=== PATIENT | female | born 1950 | race Caucasian/White ===

== ENCOUNTER 2017-06-07 22:11 | Inpatient (IN) | payer MEDICARE, OTHER ==
[~2017-06-07] VITALS: Ht 152.4 cm; Wt 42.6 kg
--- NOTE | 2017-06-07 22:15 | NUR ---
PT BIB EMS, PT EMS PT HAD AN EPISODE OF CONFUSION/ UNABLE TO SPEAK THAT RESOLVED REMELT WORKER OF EMS. PT AOX3 RR EVEN AND UNLABORED. NO SOB NOTED. NAD NOTED. NO NVD AT THIS TIME. PT NOT DIAPHORETIC. PT GOWNED AND PLACED ON MONITOR WAITING FOR MD GOMEZ.
--- NOTE | 2017-06-07 22:21 | NUR ---
CALLED HOUSE SUP FOR TELE BED
[2017-06-07 22:37] LABS: BASOPHILS % (AUTO) 0.6 % (0.0-2.0); EOSINOPHILS # (AUTO) 0.2 /CMM (0.0-0.7); EOSINOPHILS % (AUTO) 2.8 % (0.0-6.0); HEMATOCRIT 25 % (33-45); HEMOGLOBIN 8.3 g/dL (11.5-14.8); LYMPHOCYTES # (AUTO) 0.8 /CMM (0.8-4.8); LYMPHOCYTES % (AUTO) 14.7 % (20.0-44.0); MEAN CORPUSCULAR HEMOGLOBIN 26 PG (26.0-33.0); MEAN CORPUSCULAR HGB CONC 33 g/dl (31.0-36.0); MEAN CORPUSCULAR VOLUME 79 fL (82-100); MONOCYTES # (AUTO) 0.5 /CMM (0.1-1.30); MONOCYTES % (AUTO) 9.1 % (2.0-12.0); NEUTROPHILS # (AUTO) 4.2 /CMM (1.8-8.9); NEUTROPHILS % (AUTO) 72.8 % (43.0-81.0); PLATELET COUNT (AUTO) 252 /CMM (150-450); RDW COEFFICIENT OF VARIATION 14.7 (11.5-15.0); RED BLOOD CELL COUNT(AUTO) 3.18 MIL/uL (4.0-5.2); WHITE BLOOD COUNT (AUTO) 5.7 K/uL (4.3-11.0)
--- NOTE | 2017-06-07 22:38 | NUR ---
ASSIGNED BED 102
--- NOTE | 2017-06-07 22:38 | NUR ---
PT TO CT.
[2017-06-07 22:48] LABS: CALCIUM, SERUM 8.7 mg/dL (8.5-10.1); CARBON DIOXIDE 30 mmol/L (21-32); CHLORIDE 102 mmol/L (98-107); CREATININE 0.8 mg/dL (0.6-1.3); GLUCOSE 96 mg/dL (74-106); POTASSIUM 5.3 mmol/L (3.5-5.1); SODIUM SERUM 136 mmol/L (136-145); UREA NITROGEN, BLOOD 20 mg/dL (7-18)
--- NOTE | 2017-06-07 22:50 | NUR ---
PT RETURNED FROM CT VIA [facility]
[2017-06-07 22:51] LABS: INR 0.91 (0.87-1.13); PROTHROMBIN TIME 9.7 SECS (9.5-12.7)
--- NOTE | 2017-06-07 22:55 | NUR ---
URINE COLLECTED. CALLED LAB FOR MINE ENGINEERING MANAGER.
[2017-06-07 22:57] LABS: TROPONIN I < 0.017 ng/mL (0.00-0.056)
--- NOTE | 2017-06-07 23:22 | NUR ---
DR. GONZALEZ AT BEDSIDE FOR EVAL.
--- NOTE | 2017-06-07 23:33 | NUR ---
Patient does not wish to proceed with medical care recommended by Dr. Valdez. Patient given information related to possible complications, up to and including , which could occur as a result of leaving the hospital at this time. Patient verbalizes understanding of risks involved due to leaving against medical advice. Patient has signed AMA form.
--- NOTE | 2017-06-07 23:35 | NUR ---
FAMILY AT BEDSIDE.
--- NOTE | 2017-06-08 00:20 | NUR ---
DR. SPICER AT BEDSIDE SPEAKING TO FAMILY REGARDING POC.
--- NOTE | 2017-06-08 00:25 | NUR ---
PT DECIDED TO BE ADMITTED.
[2017-06-08] MEDS ORDERED: TIZA2TAB4 PO (00:59)
[2017-06-08] MEDS ORDERED: OXYC-128 PO (00:59)
[2017-06-08] MEDS ORDERED: OMEP20TA20 PO (00:59)
[2017-06-08] MEDS ORDERED: LAMO100T2 PO (00:59)
[2017-06-08] MEDS ORDERED: METH20CP PO (00:59)
[2017-06-08] MEDS ORDERED: OXYC-34 PO (00:59)
[2017-06-08] MEDS ORDERED: AMPH20CA3 PO (00:59)
[2017-06-08] MEDS ORDERED: PROP10TA10 PO (00:59)
[2017-06-08] MEDS ORDERED: DICL100G3 TP (00:59)
[2017-06-08] MEDS ORDERED: PSEU120T57 PO (00:59)
[2017-06-08] MEDS ORDERED: BACL10TA PO (00:59)
[2017-06-08] MEDS ORDERED: TRAZ-144 PO (00:59)
[2017-06-08] MEDS ORDERED: QUET25TA PO (00:59)
[2017-06-08] MEDS ORDERED: AMPH20CA11 PO (00:59)
[2017-06-08] MEDS ORDERED: TEMA30CA PO (00:59)
[2017-06-08] MEDS ORDERED: FLUO20CA36 PO (00:59)
[2017-06-08] MEDS ORDERED: BUPR150T10 PO (00:59)
[2017-06-08] MEDS ORDERED: RALO60TA PO (00:59)
[2017-06-08] MEDS ORDERED: SENN8.6T6 PO (00:59)
[2017-06-08] MEDS ORDERED: GUAI600T PO (00:59)
[2017-06-08] MEDS ORDERED: ALPR0.255 PO (00:59)
[2017-06-08] MEDS ORDERED: ASPIRIN 81 MG TAB.CHEW ONE (01:06)
--- NOTE | 2017-06-08 01:07 | NUR ---
VERBAL ORDERS PER DR. SPICER TO GIVE PT ASA [phone] PO NOW. PT MEDICATED.
--- NOTE | 2017-06-08 01:23 | NUR ---
REPORT GIVEN NERISSA SUTTON FOR TELE BED 102
[2017-06-08] MEDS ORDERED: ASPIRIN 325 MG TABLET PO ONE (01:30)
[2017-06-08 01:35] VITALS: BP 117/70
--- NOTE | 2017-06-08 01:43 | NUR ---
PT TRANSFERED PER ACLS PROTOCOL.
--- NOTE | 2017-06-08 01:45 | NUR ---
JACQUELYN-1/FEDERAL APPELLATE LAW CLERK RECEIVED PT IN ROOM 102 VIA [facility] ACCOMPANIED BY ER STAFF. PT WAS ABLE TO TRANSFER HERSELF FROM [place] TO BED WITH WITH MINIMAL ASSISTANCE. PT WAS GOWNED, PLACED ON MONITOR, AND AMBULATED TO THE TOILET WITH A WALKER AND SANIYA RN. PAST MEDICAL HISTORY WAS GATHERED FROM PTS DAVID. PHYSICAL ASSESSMENT DATA WAS GATHERED AND SKIN ASSESSMENT WAS COMPLETED. PT HAD LEFT HIP REPLACEMENT ON 06/03/17 AND DID NOT WANT SX DRESSING REMOVED. NIHSS WAS COMPLETED WITH RESULTS GIVEN TO DR. GONZALEZ. NURSE QING GOMEZ WAS COMPLETED, PT SHOWED NO DEFICITS. PT HAS LIMITED RANGE OF MOTION ON HER LEFT LEG DUE TO HER RECENT SURGERY. PT DENIES ANY TINGLING NUMBNESS OR LOSS OF SENSATION ON THIS EXTREMITY. PT AND PT WAS GIVEN INFORMATION ON SIGNS AND SYMPTOMS OF STOKE WELL RISK FACTORS. PT AND PT GAVE VERBAL UNDERSTANDING.
[2017-06-08 02:21] VITALS: BP 117/70
[2017-06-08] MEDS ORDERED: ENOXAPARIN SODIUM 40 MG/0.4 ML DISP.SYRIN SQ SCH ×2 (02:30→21:00)
[2017-06-08] MEDS ORDERED: ACETAMINOPHEN 325 MG TABLET PO PRN (02:30)
[2017-06-08 02:36] LABS: BASOPHILS % (AUTO) 0.4 % (0.0-2.0); EOSINOPHILS # (AUTO) 0.2 /CMM (0.0-0.7); HEMATOCRIT 26 % (33-45); HEMOGLOBIN 8.4 g/dL (11.5-14.8); LYMPHOCYTES # (AUTO) 1.4 /CMM (0.8-4.8); LYMPHOCYTES % (AUTO) 26.2 % (20.0-44.0); MEAN CORPUSCULAR HEMOGLOBIN 26 PG (26.0-33.0); MEAN CORPUSCULAR HGB CONC 33 g/dl (31.0-36.0); MEAN CORPUSCULAR VOLUME 79 fL (82-100); MONOCYTES # (AUTO) 0.5 /CMM (0.1-1.30); MONOCYTES % (AUTO) 9.3 % (2.0-12.0); NEUTROPHILS # (AUTO) 3.2 /CMM (1.8-8.9); NEUTROPHILS % (AUTO) 61.1 % (43.0-81.0); PLATELET COUNT (AUTO) 251 /CMM (150-450); RDW COEFFICIENT OF VARIATION 14.9 (11.5-15.0); RED BLOOD CELL COUNT(AUTO) 3.23 MIL/uL (4.0-5.2); WHITE BLOOD COUNT (AUTO) 5.3 K/uL (4.3-11.0)
[2017-06-08] MEDS ORDERED: ENOXAPARIN SODIUM 40 MG/0.4 ML DISP.SYRIN SQ ONE (02:41)
[2017-06-08 02:45] LABS: CALCIUM, SERUM 8.5 mg/dL (8.5-10.1); CREATININE 0.7 mg/dL (0.6-1.3); POTASSIUM 4.6 mmol/L (3.5-5.1)
[2017-06-08 02:57] LABS: ALBUMIN 2.5 g/dL (3.4-5.0); BILIRUBIN,TOTAL 0.6 mg/dL (0.2-1.0); TOTAL PROTEIN, SERUM 6.8 g/dL (6.4-8.2)
[2017-06-08 02:58] LABS: THYROID STIMULATING HORMONE 1.375 uIU/mL (0.358-3.74)
[2017-06-08] MEDS ORDERED: TEMAZEPAM 15 MG CAPSULE PO ONE (03:00)
--- NOTE | 2017-06-08 03:00 | NUR ---
TELE-1/FARM MANAGEMENT TEACHER PT IS VERY CONCERNED ABOUT HER NORMAL SLEEPING MEDICATION ROUTINE. DR. GONZALEZ WAS PAGED AND AN ORDER WAS RECEIVED TO GIVE A ONE TIME DOSE OF TEMAZEPAM 30MG, WHICH IS THE PTS HOME DOSE. ALSO ENOXAPARIN WAS ADMINISTERED. PT DOES NOT WANT SCD'S AT THIS TIME BECAUSE OF HER STATED SLEEP PROBLEMS. BED IN LOW LOCKED POSITION, SIDE RAILS UP, BED ALARM ON. WILL CONTINUE TO MONITOR.
[2017-06-08] MEDS ORDERED: TEMAZEPAM 15 MG CAPSULE ONE (03:01)
[2017-06-08 04:00] VITALS: BP 90/50
--- NOTE | 2017-06-08 04:24 | NUR ---
TELE-1/CARDIOPULMONARY SUPERVISOR PT IS EASILY AROUSABLE. STATES SHE IS FINE AND IS DECLINING TO PARTICIPATE IN NEURO ASSESSMENT. WILL CONTINUE TO MONITOR.
[2017-06-08] MEDS ORDERED: BLOOD SUGAR DIAGNOSTIC 1 EACH STRIP IN SCH (06:00)
[2017-06-08] MEDS ORDERED: oxyCODONE/APAP (5/325 MG) 1 UDTAB TABLET PO PRN ×2 (07:30)
--- NOTE | 2017-06-08 07:45 | NUR ---
RN NOTES RECEIVED PT RESTING IN BED, WATCHING TV. AWAKE ALERT ORIENTED X4, ABLE TO COMMUNICATE NEEDS. NO FACIAL DROOP NOTED, NO SLURRED SPEECH. ON RA ALEK WELL, NO ACUTE DISTRESS/ DISCOMFORT NOTED. PT SR ON TELE MONITOR HR 83BPM AT THIS TIME. PT DENIES ANY WEAKNESS, ADVISED PT TO CALL FOR NURSE WHEN ASSISTANCE IS NEEDED, BED ALARM ON. WALKER AT BEDSIDE. NOTED WITH LIMITED MOVEMENT ON LLE DT S/P TOTAL HIP REPLACEMENT, PT REFUSED FOR DRESSING TO BE CHANGED PER NOC NURSE REPORT, PT PREFERS MD TO DO THE DRESSING CHANGE. EDUCATED PT WITH USE OF CALL LIGHT FOR ASSISTANCE, PT VERBALIZED UNDERSTANDING. R AC SALINE LOCK, FLUSHED WITH NS TO CHECK FOR PATENCY. ALL NEEDS ATTENDED, CALL LIGHT WITHIN REACH, WILL CONT TO MONITOR.
[2017-06-08 08:00] VITALS: BP 102/60
--- NOTE | 2017-06-08 08:47 | NUR ---
RN NOTES BED ALARM GOING OFF, PT NOTED GET OOB WITHOUT ASSISTANCE, REMINDED PT TO ASK FOR HELP AND USE THE CALL LIGHT TO CALL FOR ASSISTANCE.
[2017-06-08] MEDS ORDERED: RALOXIFENE 60 MG TABLET PO SCH (09:00)
[2017-06-08] MEDS ORDERED: buPROPion SR 150 MG TABLET.ER PO SCH (09:00)
[2017-06-08] MEDS ORDERED: PROPRANOLOL HCL 10 MG TABLET PO SCH (09:00)
[2017-06-08] MEDS ORDERED: SENNOSIDES 8.6 MG TABLET PO SCH (09:00)
[2017-06-08] MEDS ORDERED: ASPIRIN EC 325 MG TABLET.DR PO SCH (09:00)
[2017-06-08] MEDS ORDERED: DOCUSATE SODIUM 100 MG CAPSULE PO SCH (09:00)
[2017-06-08] MEDS ORDERED: oxyCODONE/APAP (5/325 MG) 1 UDTAB TABLET PO SCH (09:00)
[2017-06-08] MEDS ORDERED: FLUOXETINE HCL 20 MG CAPSULE PO SCH (09:00)
[2017-06-08] MEDS ORDERED: LamoTRIgine 100 MG TABLET PO SCH (09:00)
[2017-06-08] MEDS: ALPRAZOLAM 0.25 MG TABLET PO SCH ×2 (09:10→13:10)
[2017-06-08] MEDS: BLOOD SUGAR DIAGNOSTIC 1 EACH STRIP IN SCH ×2 (09:10→13:10)
[2017-06-08 12:00] VITALS: BP 88/48
--- NOTE | 2017-06-08 14:00 | NUR ---
RN NOTES DR IVAN AT BEDSIDE, PLAN OF CARE DISCUSSED WITH PT, ALL QUESTIONS AND CONCERNS ANSWERED BY MD. FAMILY MEMBERS AT BEDSIDE.
--- NOTE | 2017-06-08 14:27 | NUR ---
RN NOTES RN NOTES PT WAS SEEN BY PHYSICAL THERAPIST FOR EVALUATION. PHYSICAL THERAPIST AMBULATED WITH PT, PT ABLE TO AMBULATED WITH WALKER
--- NOTE | 2017-06-08 15:15 | NUR ---
RN NOTES PT DISCHARGED FROM UNIT IN STABLE CONDITION. ALL DISCHARGE PAPERWORK SENT WITH THE PT, EXITCARE PROVIDED. DISCHARGE INSTRUCTIONS GIVEN, PT VERBALIZED UNDERSTANDING. NO PRESCRIPTIONS ORDERED BY MD. PAPERWORK SIGNED BY PT, ALL BELONGINGS RETURNED. REMINDED PT TTO FOLLOW UP WITH PRIMARY CARE PHYSICIAN IN 1-2 WEEKS. VS WITHIN NORMAL LIMITS, NO WEKANESS NOTED, NO DIFFICULTY SPEAKING NOTED. PT ACCOMPANIED TO LOBBY VIA WHEELCHAIR WITH NURSE CIRCULATION CLERK AND AND 2 OTHER FAMILY MEMBERS. IV SITE ON R ARM REMOVED, PRESSURE APPLIED COVERED WITH CLEAN DRY DRESSING. ID BAND REMOVED.
[2017-06-08] MEDS ORDERED: TRAZODONE 50 MG TABLET PO SCH (18:00)
[2017-06-08] MEDS ORDERED: QUETIAPINE FUMARATE 25 MG TABLET PO SCH (18:00)
[2017-06-08] MEDS ORDERED: TEMAZEPAM 15 MG CAPSULE PO SCH (22:00)
== END 2017-06-08 15:15 | disposition home or self-care (01) | DRG 917 ==
LOC: ER 22:12 → TELE1 06-08 00:56
PROVIDERS: ADMIT Internal Medicine; ATTEND Internal Medicine
DX: T40.2X1A Poisoning by other opioids, accidental (unintentional), initial encounter (principal); G92 Toxic encephalopathy; D62 Acute posthemorrhagic anemia; G89.4 Chronic pain syndrome; F31.9 Bipolar disorder, unspecified; M48.06 Spinal stenosis, lumbar region; Z96.642 Presence of left artificial hip joint; Z88.0 Allergy status to penicillin; M19.90 Unspecified osteoarthritis, unspecified site; Y92.89 Other specified places as the place of occurrence of the external cause
CPT/HCPCS: 36415; 70450-TC; 71010-TC; 80048-TC; 80053-TC; 80061-TC; 80305; 82962-TC; 83880; 84443-TC; 84484-TC; 85025-TC; 85652-TC; 85730-TC; 87081-TC; A4606; J1650; Z7610

== ENCOUNTER 2017-07-04 14:59 | Inpatient (IN) | payer MEDICARE, OTHER ==
[~2017-07-04] VITALS: Ht 149.9 cm; Wt 45.0 kg
[~2017-07-04 14:59] MED LIST: ALPR0.255 PO; AMPH20CA11 PO; AMPH20CA3 PO; BACL10TA PO; BUPR150T10 PO; DICL100G3 TP; FLUO20CA36 PO; GUAI600T PO; LAMO100T2 PO; METH20CP PO; OMEP20TA20 PO; OXYC-128 PO; PROP10TA10 PO; PSEU120T57 PO; QUET25TA PO; RALO60TA PO; SENN8.6T6 PO; TEMA30CA PO; TIZA2TAB4 PO; TRAZ-144 PO
--- NOTE | 2017-07-04 15:10 | NUR ---
PATIENT BIB RA D/T GLF AT HOME. PATIENT IS A/OX 3, BREATHING EVEN AND UNLABORED. NO SOB. PATIENT ADMITS TO USING PAIN KILLERS FOR RECENT HIP SURGERY. PATIENT'S VITALS STABLE, EXCEPT BP RUNNING LOW, WHICH IS NORMAL PER PATIENT. PATIENTS NEEDS ATTENDED TO, SAFETY AND COMFORT MEASURES IN PLACE. AWAITING MD ORDERS.
[2017-07-04] MEDS ORDERED: TEMA15CA PO (16:02)
[2017-07-04] MEDS ORDERED: SULF1TAB48 PO (16:02)
[2017-07-04] MEDS ORDERED: DEXT10TA7 PO (16:02)
[2017-07-04] MEDS ORDERED: ONDA4TAB5 PO (16:02)
--- NOTE | 2017-07-04 16:35 | NUR ---
PAGED DR HALL PATIENT'S ORTHOPEDIC SURGEON
--- NOTE | 2017-07-04 17:04 | NUR ---
PAGED DR LEWIS FOR ORTHO CONSULT
--- NOTE | 2017-07-04 18:30 | NUR ---
PATIENT TRANSPORTED TO ROOM 311-2 FOR ADMISSION. REPORT GIVEN TO KATYA YANCEY FOR LASHA.
--- NOTE | 2017-07-04 18:51 | NUR ---
MS/RN NOTES PATIENT ADMITTED TO UNIT VIA GURNEY ACCOMPANIED BY ER NURSE AND . ALERT AND ORIENTED X 3, NO COMPLAINT VOICED AT THIS TIME. V/S TAKEN. ORIENTED TO UNIT. ENDORSED TO MEDIA SENIOR RECRUITER NURSE TO CONTINUE WITH ASSESSMENT AND ADMISSION.
[2017-07-04 19:20] VITALS: BP 95/53
--- NOTE | 2017-07-04 19:20 | NUR ---
MS RN NOTES RECEIVED PT IN BED, AWAKE, A/OX 3. VERBALLY RESPONSIVE. NO DISTRESS NO SOB NOTED. RESPIRATION IS EVEN AND UNLABORED.IV SITE ON LFA INTACT AND PATENT, NO S/S OF INFILTRATION NOTED. PT C/O LEFT HIP PAIN / OFFERED PAIN MEDICATION, PT DOESN'T WANT IT AT THIS TIME.SKIN IS INTACT. LEFT HIP SURGICAL SITE WITH INTACT AND CLEAN DRESSING. NO BLEEDING AT THIS TIME. PLAN OF CARE DISCUSSED WITH THE PT., VERBALIZED UNDERSTANDING. ALL NEEDS ATTENDED AND MET. LEFT COMFORTABLE. SAFETY PRECAUTIONS OBSERVED. CALL LIGHT WITHIN REACH. WILL CONT TO MONITOR.
[2017-07-05] VITALS (14 sets, daily range): BP systolic 89–125; BP diastolic 50–73
--- NOTE | 2017-07-05 04:03 | NUR ---
FOUND IV ON LFA G # 18 OUT. NO BLEEDING NOTED. INSERTED IV ON LFA G# 20 WITH GOOD VENOUS RETURN. PT ALEK WELL.
[2017-07-05 05:28] LABS: BASOPHILS % (AUTO) 0.4 % (0.0-2.0); EOSINOPHILS # (AUTO) 0.1 /CMM (0.0-0.7); EOSINOPHILS % (AUTO) 0.9 % (0.0-6.0); LYMPHOCYTES # (AUTO) 0.8 /CMM (0.8-4.8); LYMPHOCYTES % (AUTO) 9.2 % (20.0-44.0); MEAN CORPUSCULAR HEMOGLOBIN 25 PG (26.0-33.0); MEAN CORPUSCULAR HGB CONC 32 g/dl (31.0-36.0); MEAN CORPUSCULAR VOLUME 80 fL (82-100); MONOCYTES # (AUTO) 0.8 /CMM (0.1-1.30); MONOCYTES % (AUTO) 9.5 % (2.0-12.0); NEUTROPHILS # (AUTO) 7.1 /CMM (1.8-8.9); PLATELET COUNT (AUTO) 559 /CMM (150-450); RDW COEFFICIENT OF VARIATION 17.6 (11.5-15.0); RED BLOOD CELL COUNT(AUTO) 2.07 MIL/uL (4.0-5.2); WHITE BLOOD COUNT (AUTO) 8.8 K/uL (4.3-11.0)
[2017-07-05 05:33] LABS: INR 1.1 (0.87-1.13); PROTHROMBIN TIME 11.8 SECS (9.5-12.7)
[2017-07-05 05:36] LABS: HEMATOCRIT 17 % (33-45); HEMOGLOBIN 5.3 g/dL (11.5-14.8)
[2017-07-05 05:46] LABS: ALBUMIN 1.7 g/dL (3.4-5.0); BILIRUBIN,TOTAL 0.2 mg/dL (0.2-1.0); CALCIUM, SERUM 8.2 mg/dL (8.5-10.1); CREATININE 0.9 mg/dL (0.6-1.3); PHOSPHORUS 3.7 mg/dL (2.5-4.9); POTASSIUM 4.4 mmol/L (3.5-5.1); TOTAL PROTEIN, SERUM 6.3 g/dL (6.4-8.2)
--- NOTE | 2017-07-05 05:47 | NUR ---
PLACED A CALL TO MADAN IVAN, RELAYED PT'S CRITICAL LAB RESULTS : HGB: 5.3, HCT: 17, PLT : 559, MD WITH NEW ORDERS NOTED AND CARRIED OUT.
[2017-07-05 06:26] LABS: LYMPHOCYTES % (MANUAL) 12 % (16-48); MONOCYTES % (MANUAL) 9 % (0-11.0); NEUTROPHILS % (MANUAL) 79 (42-76)
--- NOTE | 2017-07-05 06:43 | NUR ---
MS RN NOTES PT IN BED, AWAKE, A/OX 3, WITH PERIODS OF CONFUSION. VERBALLY RESPONSIVE. NO DISTRESS NO SOB NOTED. RESPIRATION IS EVEN AND UNLABORED.IV SITE ON LFA INTACT AND PATENT, NO S/S OF INFILTRATION NOTED. LEFT HIP SURGICAL SITE WITH INTACT AND CLEAN DRESSING. NO BLEEDING AT THIS TIME. DENIES ANY PAIN OR DISCOMFORT AT THIS TIME. ALL NEEDS ATTENDED AND MET. LEFT COMFORTABLE. SAFETY PRECAUTIONS OBSERVED. CALL LIGHT WITHIN REACH. WILL ENDORSE TO NEXT SHIFT FOR LASHA.
[2017-07-05 06:52] LABS: IRON, SERUM 8 ug/dl (50-175); TOTAL IRON BINDING CAPACITY 150 ug/dl (250-450)
--- NOTE | 2017-07-05 06:55 | NUR ---
DR. LEWIS INFORMED REGARDING PT'S CRITICAL LAB RESULTS.
--- NOTE | 2017-07-05 07:06 | NUR ---
PT WAS PICKED UP BY OR STAFF FOR LEFT HIP CLOSED REDUCTION. PT IS AWAKE, NO DISTRESS, NO SOB NOTED. WILL ENDORSE TO NEXT SHIFT FOR LAHSA.
--- NOTE | 2017-07-05 07:38 | NUR ---
RN NOTES RECEIVED PT. PT WAS PICKED UP BY OR STAFF THIS AM. WAS ENDORSED BY LAST MODEL MAKER THAT PT HAS LOW H/H OF 5.3/17. MD AWARE. OR STAFF AWARE. AWAITING CALL FROM LAB THAT BLOOD IS READY. WILL F/U WITH LAB.
[2017-07-05 12:07] LABS: THYROID STIMULATING HORMONE 0.752 uIU/mL (0.358-3.74)
--- NOTE | 2017-07-05 16:56 | NUR ---
RN NOTES ONE UNIT PRBC TRANSFUSED PER MD ORDER. SECOND UNIT HUNG AND TRANSFUSING NOW. WILL CONTINUE TO MONITOR.
--- NOTE | 2017-07-05 18:46 | NUR ---
RN CLOSING NOTES PT IS IN BED RESTING. PT CONTINUES TO HAVE BLOOD TRANSFUSION. MONITORING PT CLOSELY. VITAL SIGNS REMAIN STABLE. NO S/S OF DISTRESS OR SOB. NO C/O PAIN AT THIS MOMENT. SAFETY MEASURES IN PLACE, CALL LIGHT WITHIN REACH. WILL CONTINUE TO MONITOR.
--- NOTE | 2017-07-05 19:15 | NUR ---
RN OPEN NOTES RECEIVED PATIENT AWAKE IN BED WITH FAMILY AT BEDSIDE. A/O X3. NO SIGNS OF DISTRESS OR DISCOMFORT. BREATHING EVEN AND UNLABORED. PATIENT CURRENTLY RECEIVING BLOOD TRANSFUSION, TOLERATING WELL. IV ACCESS IN LFA PATENT AND INTACT, NO SIGNS OF REDNESS OR INFILTRATION. DRESSING ON L HIP C/D/I. ABDUCTION PILLOW CURRENTLY NOT IN PLACE, PATIENT STATES SHE DOES NOT NEED IT AT THIS TIME. BED IN LOW LOCKED POSITION WITH SIDE RAILS X2. CALL LIGHT WITHIN REACH. WILL CONTINUE TO MONITOR.
--- NOTE | 2017-07-05 20:09 | NUR ---
RN NOTES ADMINISTERED XANAX .25MG ORDERED FOR ANXIETY. VSS. WILL CONTINUE TO MONITOR.
--- NOTE | 2017-07-05 21:11 | NUR ---
RN NOTES ADMINISTERED NORCO 5/325 FOR L HIP PAIN. VSS. WILL CONTINUE TO MONITOR.
[2017-07-05 22:32] LABS: BASOPHILS % (AUTO) 0.3 % (0.0-2.0); EOSINOPHILS # (AUTO) 0.2 /CMM (0.0-0.7); HEMATOCRIT 22 % (33-45); HEMOGLOBIN 7.2 g/dL (11.5-14.8); LYMPHOCYTES # (AUTO) 1.3 /CMM (0.8-4.8); LYMPHOCYTES % (AUTO) 13.1 % (20.0-44.0); MEAN CORPUSCULAR HEMOGLOBIN 26 PG (26.0-33.0); MEAN CORPUSCULAR HGB CONC 33 g/dl (31.0-36.0); MEAN CORPUSCULAR VOLUME 81 fL (82-100); MONOCYTES # (AUTO) 1.1 /CMM (0.1-1.30); MONOCYTES % (AUTO) 11.5 % (2.0-12.0); NEUTROPHILS # (AUTO) 7.3 /CMM (1.8-8.9); NEUTROPHILS % (AUTO) 73.1 % (43.0-81.0); PLATELET COUNT (AUTO) 445 /CMM (150-450); RDW COEFFICIENT OF VARIATION 15.9 (11.5-15.0); RED BLOOD CELL COUNT(AUTO) 2.75 MIL/uL (4.0-5.2)
--- NOTE | 2017-07-06 06:29 | NUR ---
RN NOTES ADMINISTERED PERCOCET 5/325 ORDERED FOR L HIP PAIN. VSS. WILL CONTINUE TO MONITOR.
--- NOTE | 2017-07-06 07:01 | NUR ---
RN CLOSING NOTES PATIENT AWAKE IN BED. A/O X3. NO SIGNS OF DISTRESS OR DISCOMFORT. BREATHING EVEN AND UNLABORED. IV ACCESS IN LFA WITH D5 1/2 NS INFUSING, PATENT AND INTACT, NO SIGNS OF REDNESS OR INFILTRATION. DRESSING ON L HIP C/D/I. ABDUCTION PILLOW IN PLACE. ALL NEEDS MET. NO SIGNIFICANT CHANGES THROUGH THE NIGHT. BED IN LOW LOCKED POSITION WITH SIDE RAILS X2. CALL LIGHT WITHIN REACH. WILL ENDORSE TO AM SHIFT FOR LASHA.
[2017-07-06 08:00] VITALS: BP 96/54
[2017-07-06 08:07] LABS: IMMUNOGLOBULIN A, SERUM 340 mg/dL (87-352); IMMUNOGLOBULIN G, SERUM 988 mg/dL (700-1600); IMMUNOGLOBULIN M, SERUM 47 mg/dL (26-217)
--- NOTE | 2017-07-06 08:13 | NUR ---
RN NOTES RECEIVED PT. PT IS STABLE AND IN BED RESTING. A/O X4. NO S/S OF DISTRESS OR SOB. IV ACCESS LOCATED ON LEFT FOREARM 18G RUNNING D5 1/2 NS AT 75 ML/HR. PT IS ON ROOM AIR. SAFETY MEASURES IN PLACE, CALL LIGHT WITHIN REACH. WILL CONTINUE TO MONITOR.
[2017-07-06 08:36] VITALS: BP 96/54
--- NOTE | 2017-07-06 13:08 | NUR ---
DISCHARGE NOTE PT DISCHARGED TO HOME, VSS NO S/S OF SOB OR DISTRESS. NO C/O PAIN AT THIS TIME. PT RECEIVED DISCHARGE INFORMATION/EXIT CARE. ALL EXIT CARE AND DISCHARGE ORDERS REVIEWED WITH PT, PT VERBALIZES UNDERSTANDING. PT UNDERSTANDS TO FOLLOW UP WITH DR. KARIS MARINELLI FOR HEMATOLOGY F/U. IV ACCESS REMOVED. PT PICKED UP BY AND DAUGHTER, ESCORTED OUT WITH FAMILY MEMBERS.
[2017-07-08 12:09] LABS: *SPE ALPHA-1-GLOBULIN 0.5 g/dL (0.0-0.4); *SPE ALPHA-2-GLOBULIN 0.9 g/dL (0.4-1.0); *SPE BETA GLOBULIN 0.7 g/dL (0.7-1.3); *SPE M-SPIKE 0.1 g/dL (Not Observed); *SPE PROTEIN TOTAL 5.2 g/dL (6.0-8.5); *SPEGAMMA GLOBULIN 1.1 g/dL (0.4-1.8)
[2017-07-08 12:10] LABS: *SPE A/G RATIO 0.6 (0.7-1.7); *SPE GLOBULIN, TOTAL 3.2 g/dL (2.2-3.9)
== END 2017-07-06 13:08 | disposition home or self-care (01) | DRG 559 ==
LOC: MERGE 15:01 → ER 15:01 → MED 18:43
PROVIDERS: ADMIT Internal Medicine; ATTEND Internal Medicine
PROC: 30233N1 Transfusion of Nonautologous Red Blood Cells into Peripheral Vein, Percutaneous Approach (ICD-10-PCS; 2017-07-05)
PROC: 0SWBXJZ Revision of Synthetic Substitute in Left Hip Joint, External Approach (ICD-10-PCS; principal; 2017-07-05 08:30)
DX: T84.021A Dislocation of internal left hip prosthesis, initial encounter (principal); E43 Unspecified severe protein-calorie malnutrition; E88.09 Other disorders of plasma-protein metabolism, not elsewhere classified; D50.9 Iron deficiency anemia, unspecified; Z88.0 Allergy status to penicillin; Z88.8 Allergy status to other drugs, medicaments and biological substances; D75.89 Other specified diseases of blood and blood-forming organs; G89.29 Other chronic pain; F31.9 Bipolar disorder, unspecified; M81.0 Age-related osteoporosis without current pathological fracture; Y79.2 Prosthetic and other implants, materials and accessory orthopedic devices associated with adverse incidents; Z86.018 Personal history of other benign neoplasm; Z79.899 Other long term (current) drug therapy; R10.11 Right upper quadrant pain; R55 Syncope and collapse; D47.3 Essential (hemorrhagic) thrombocythemia; F90.9 Attention-deficit hyperactivity disorder, unspecified type; Z68.20 Body mass index [BMI] 20.0-20.9, adult
CPT/HCPCS: 36415; 71010-TC; 73020; 73502; 76700-TC; 80053-TC; 82728-TC; 82746; 82784; 83540-TC; 83735-TC; 84100-TC; 84155; 84165; 84439-TC; 84443-TC; 85025-TC; 85045-TC; 85610-TC; 85730-TC; 86334; 86850-TC; 86921-TC; 87081-TC; A4606; A6253; A6402; J2270; J2405; J2704; J2916; J3490; J7030; J7040; P9016-BL; Z7610

== ENCOUNTER 2017-07-28 13:36 | Emergency (ER) | payer MEDICARE, OTHER ==
[~2017-07-28] VITALS: Ht 149.9 cm; Wt 45.4 kg
[~2017-07-28 13:36] MED LIST changes: -AMPH20CA3 PO; +DEXT10TA7 PO; +ONDA4TAB5 PO; +SULF1TAB48 PO; +TEMA15CA PO; -TEMA30CA PO
[2017-07-28 13:48] VITALS: BP 105/62
--- NOTE | 2017-07-28 15:40 | NUR ---
HERMAN PICC LINE NURSE AT - PICC LINE WAS ABLE TO BE FLUSHED- NO CLOG NOTED. MD NEWMAN.
--- NOTE | 2017-07-28 17:14 | NUR ---
Patient discharged to home in stable condition. Written and verbal after care instructions given. Patient verbalizes understanding of instruction.
== END 2017-07-28 17:16 | disposition home or self-care (01) ==
LOC: ER 13:38
DX: Z45.2 Encounter for adjustment and management of vascular access device (principal); Z88.0 Allergy status to penicillin
CPT/HCPCS: A4606; Z7610